=== PATIENT | female | born 1990 | race Caucasian/White ===

== ENCOUNTER 2024-11-01 00:31 | Observation (INO) | payer OTHER ==
[~2024-11-01] VITALS: Ht 157.5 cm; Wt 93.3 kg
[~2024-11-01 00:31] MED LIST: DITR5TAB PO; FLOM0.4C39 PO; KEFL500C17 PO; PERC5TAB12 PO; ZOFR4TAB14 PO; toradol PO
[2024-11-01 22:20] VITALS: BP 116/75; TEMP 98.9; O2SAT 100
[2024-11-01 23:29] LABS: KETONE, URINE AUTO RFX 1+ mg/dL (NEGATIVE); MUCUS, URINE RFX SMALL (NEGATIVE); NITRITE, URINE AUTO RFX NEGATIVE (NEGATIVE); RBC, URINE AUTO RFX TNTC /HPF (0-3); SQUAM EPITHELIAL CELL UR AURFX 1 /HPF (0-6); WBC, URINE AUTO RFX 10 /HPF (0-3)
[2024-11-02] VITALS (7 sets, daily range): BP systolic 113–138; BP diastolic 67–84; TEMP 97.2–99.6; O2SAT 95–100
[2024-11-02 00:02] LABS: LEUKOCYTE ESTERASE UR AUTO RFX TRACE (NEGATIVE)
[2024-11-02] MEDS ORDERED: PROMETHAZINE 25MG/ML 1ML VIAL IV PRN (00:10)
[2024-11-02 00:54] LABS: HEMATOCRIT 37.5 % (36.0-47.0); HEMOGLOBIN 12.7 g/dl (12.0-15.5); MEAN CORPUSCULAR HEMOGLOBIN 29.2 pg (27.0-33.0); MEAN CORPUSCULAR HGB CONC 33.9 g/dl (32.0-36.5); MEAN CORPUSCULAR VOLUME 86.2 fl (80.0-96.0); PLATELET COUNT, AUTOMATED 292 10^3/uL (150-450); RED BLOOD COUNT 4.35 10^6/uL (4.00-5.40); WHITE BLOOD COUNT 13.4 10^3/uL (4.0-10.0)
[2024-11-02 01:10] LABS: ALBUMIN 3.7 G/DL (3.2-5.2); ALKALINE PHOSPHATASE 64 U/L (35-104); ALT/SGPT 11 U/L (7.0-40); AST/SGOT 9 U/L (<34); BILIRUBIN,TOTAL 0.6 MG/DL (0.3-1.2); BLOOD UREA NITROGEN 9 MG/DL (9-23); CALCIUM LEVEL 8.5 MG/DL (8.5-10.1); CARBON DIOXIDE LEVEL 22 MMOL/L (20-31); CHLORIDE LEVEL 111 MMOL/L (98-107); CREATININE FOR GFR 0.76 MG/DL (0.55-1.30); GLOMERULAR FILTRATION RATE > 60.0 (>60); GLUCOSE, FASTING 93 MG/DL (60-100); SODIUM LEVEL 145 MMOL/L (136-145); TOTAL PROTEIN 6.6 G/DL (5.7-8.2)
[2024-11-02 01:17] LABS: PROCALCITONIN 0.04 ng/ml
[2024-11-02] MEDS: ACETAMINOPHEN 325 MG TAB PO PRN (02:11)
[2024-11-02] MEDS: PERCOCET 5MG/325MG TAB PO ONE (03:00)
[2024-11-02] MEDS: NS (Normal Saline) 0.9% 1,000 ML IV SCH (03:03)
[2024-11-02] MEDS: ONDANSETRON 4MG ORAL DISINTEGRATING TAB PO ONE (03:13)
[2024-11-02] MEDS: MORPHINE 2 MG/ML 1ML VIAL IV PRN (03:13)
[2024-11-02] MEDS ORDERED: oxyCODONE 5MG TAB PO PRN ×2 (07:40→16:45)
[2024-11-02] MEDS ORDERED: MORPHINE 2 MG/ML 1ML VIAL IV PRN (07:40)
[2024-11-02] MEDS ORDERED: fentaNYL 100 MCG/2 ML INJECTION IV PRN ×2 (07:40→16:45)
[2024-11-02] MEDS ORDERED: ONDANSETRON 4MG 2ML VIAL IV PRN ×2 (07:40→16:45)
[2024-11-02 08:12] LABS: HEMATOCRIT 36.8 % (36.0-47.0); HEMOGLOBIN 12.3 g/dl (12.0-15.5); MEAN CORPUSCULAR HGB CONC 33.4 g/dl (32.0-36.5); MEAN CORPUSCULAR VOLUME 86.8 fl (80.0-96.0); PLATELET COUNT, AUTOMATED 249 10^3/uL (150-450); RED BLOOD COUNT 4.24 10^6/uL (4.00-5.40)
[2024-11-02 08:38] LABS: BLOOD UREA NITROGEN 9 MG/DL (9-23); CALCIUM LEVEL 8.2 MG/DL (8.5-10.1); CARBON DIOXIDE LEVEL 23 MMOL/L (20-31); CHLORIDE LEVEL 112 MMOL/L (98-107); CREATININE FOR GFR 0.71 MG/DL (0.55-1.30); GLOMERULAR FILTRATION RATE > 60.0 (>60); GLUCOSE, FASTING 85 MG/DL (60-100); POTASSIUM SERUM 3.7 MMOL/L (3.5-5.1); SODIUM LEVEL 144 MMOL/L (136-145)
[2024-11-02] MEDS: PANTOPRAZOLE 20 MG TAB PO SCH (09:49)
[2024-11-02] MEDS ORDERED: PANT20TA6 PO (11:54)
[2024-11-02] MEDS ORDERED: ACET-897 PO (11:54)
[2024-11-02] MEDS ORDERED: HOME MED LIST COMPLETE! XX SCH (11:55)
[2024-11-02] MEDS ORDERED: MIDAZOLAM INJ 2MG/2ML VIAL As Ordered ONE (16:10)
[2024-11-02] MEDS ORDERED: fentaNYL 100 MCG/2 ML INJECTION As Ordered ONE (16:10)
[2024-11-02] MEDS ORDERED: LIDOCAINE 2% 100MG/5ML SDV (FOR ANES.) As Ordered ONE (16:10)
[2024-11-02] MEDS ORDERED: propofoL 200 MG/20 ML VIAL As Ordered ONE (16:10)
[2024-11-02] MEDS: ISOVUE-300 61% 100ML VIAL As Ordered ONE (16:36)
[2024-11-02] MEDS ORDERED: HYDROMORPHONE HCL 0.5 MG/ 0.5 ML SYRINGE IV PRN (16:45)
[2024-11-02] MEDS: cefTRIAXone SOD 1 GM in DEXTROSE 5% (D5W) ADV/MINI-BAG 50 ML IV SCH (18:24)
[2024-11-02] MEDS: LR 1,000 ML IV SCH (18:34)
[2024-11-02] MEDS: ACETAMINOPHEN 500 MG TAB PO SCH (21:38)
[2024-11-03] VITALS: BP 117/73; TEMP 98.5; O2SAT 97
[2024-11-03] MEDS: MORPHINE 2 MG/ML 1ML VIAL IV PRN (00:40)
[2024-11-03 06:00] VITALS: BP 127/69; TEMP 98.7; O2SAT 99
[2024-11-03 07:47] LABS: HEMATOCRIT 33.7 % (36.0-47.0); HEMOGLOBIN 11.5 g/dl (12.0-15.5); MEAN CORPUSCULAR HGB CONC 34.1 g/dl (32.0-36.5); PLATELET COUNT, AUTOMATED 222 10^3/uL (150-450); RED BLOOD COUNT 3.83 10^6/uL (4.00-5.40); WHITE BLOOD COUNT 6.9 10^3/uL (4.0-10.0)
[2024-11-03 08:13] LABS: BLOOD UREA NITROGEN 5 MG/DL (9-23); CALCIUM LEVEL 8.1 MG/DL (8.5-10.1); CARBON DIOXIDE LEVEL 23 MMOL/L (20-31); CHLORIDE LEVEL 109 MMOL/L (98-107); CREATININE FOR GFR 0.68 MG/DL (0.55-1.30); GLOMERULAR FILTRATION RATE > 60.0 (>60); GLUCOSE, FASTING 87 MG/DL (60-100); POTASSIUM SERUM 3.9 MMOL/L (3.5-5.1); SODIUM LEVEL 142 MMOL/L (136-145)
[2024-11-03] MEDS: ENOXAPARIN 40MG/0.4ML SYRINGE (J1650 PER 10MG) SC SCH (08:54)
[2024-11-03 10:00] VITALS: BP 120/61; TEMP 98.2; O2SAT 98
[2024-11-03 14:00] VITALS: BP 132/80; TEMP 98.3; O2SAT 99
[2024-11-03] MEDS: cefTRIAXone SOD 1 GM in DEXTROSE 5% (D5W) ADV/MINI-BAG 50 ML IV ONE (14:04)
== END 2024-11-03 15:47 | disposition home or self-care (01) ==
LOC: M PED 00:31
PROVIDERS: ADMIT Student in an Organized Health Care Education/Training Program; ATTEND Student in an Organized Health Care Education/Training Program
DX: N20.1 Calculus of ureter (principal); N10 Acute pyelonephritis; N17.9 Acute kidney failure, unspecified; D72.829 Elevated white blood cell count, unspecified; E27.8 Other specified disorders of adrenal gland; K21.9 Gastro-esophageal reflux disease without esophagitis; K76.0 Fatty (change of) liver, not elsewhere classified; M51.379 Other intervertebral disc degeneration, lumbosacral region without mention of lumbar back pain or lower extremity pain; Z79.899 Other long term (current) drug therapy
CPT/HCPCS: 36415; 52332; 76000; 80048; 80053; 81001; 83605; 83735; 84145; 85027; 87040; 87086; 93005; 96361; 96365; 96366; 96372; 96375; 96376; C2617; J0696; J1650; J2250; J3010; Q9967

== ENCOUNTER 2024-11-17 07:25 | Day surgery (SDC) | payer OTHER ==
[~2024-11-17] VITALS: Ht 157.5 cm; Wt 93.3 kg
[~2024-11-17 07:25] MED LIST changes: +ACET-897 PO; +LIDOCAINE 2% 100MG/5ML SDV (FOR ANES.) As Ordered ONE; +MIDAZOLAM INJ 2MG/2ML VIAL As Ordered ONE; +OXYB5TAB14 PO; +PANT20TA6 PO; +PHEN1TAB73 PO; +propofoL 200 MG/20 ML VIAL As Ordered ONE
[2024-11-17] MEDS ORDERED: LR 1,000 ML IV SCH ×2 (08:15→09:35)
[2024-11-17] MEDS ORDERED: SCOPOLAMINE 1MG TRANSDERMAL PATCH TOP ONE (08:20)
[2024-11-17] MEDS: ceFAZolin SOD 2 GM IV ONCE IV ONE (08:27)
[2024-11-17] MEDS ORDERED: ACETAMINOPHEN 1000MG/100ML IV BAG As Ordered ONE (08:33)
[2024-11-17] MEDS ORDERED: KETOROLAC 30 MG/ML 1ML VIAL As Ordered ONE (08:34)
[2024-11-17] MEDS: SCOPOLAMINE 1MG TRANSDERMAL PATCH As Ordered ONE (08:37)
[2024-11-17] MEDS ORDERED: ePHEDrine SULFATE 25 MG/5 ML(5MG/ML) SYRINGE As Ordered ONE (08:38)
[2024-11-17] MEDS ORDERED: PHENYLephrine 500MCG 5ML (100MCG/ML) SYRINGE As Ordered ONE (09:01)
[2024-11-17] MEDS ORDERED: PYRI1TAB5 PO (09:14)
[2024-11-17] MEDS ORDERED: MACR100C43 PO (09:14)
[2024-11-17] MEDS ORDERED: HYDROMORPHONE HCL 0.5 MG/ 0.5 ML SYRINGE IV PRN (09:35)
[2024-11-17] MEDS ORDERED: ONDANSETRON 4MG 2ML VIAL IV PRN (09:35)
[2024-11-17] MEDS ORDERED: oxyCODONE 5MG TAB PO PRN (09:35)
[2024-11-17] MEDS ORDERED: fentaNYL 100 MCG/2 ML INJECTION IV PRN (09:35)
[2024-11-17] MEDS: PROMETHAZINE 25MG/ML 1ML VIAL IV PRN (10:06)
[2024-11-17 12:50] VITALS: BP 132/82; TEMP 97.3; O2SAT 99
== END 2024-11-17 13:00 | disposition home or self-care (01) ==
LOC: M SDC 07:25
PROVIDERS: ATTEND Urology
DX: N20.0 Calculus of kidney (principal); K21.9 Gastro-esophageal reflux disease without esophagitis; Z79.899 Other long term (current) drug therapy
CPT/HCPCS: 50590; 74018; J0131; J0690; J1885; J2250; J2371; J2550

== ENCOUNTER 2024-11-22 21:10 | Emergency (ER) | payer OTHER ==
[~2024-11-22] VITALS: Ht 157.5 cm; Wt 94.3 kg
[~2024-11-22 21:10] MED LIST changes: -LIDOCAINE 2% 100MG/5ML SDV (FOR ANES.) As Ordered ONE; +MACR100C43 PO; -MIDAZOLAM INJ 2MG/2ML VIAL As Ordered ONE; +PYRI1TAB5 PO; -propofoL 200 MG/20 ML VIAL As Ordered ONE
[2024-11-22 22:06] LABS: KETONE, URINE AUTO RFX NEGATIVE (NEGATIVE); MUCUS, URINE RFX SMALL (NEGATIVE); RBC, URINE AUTO RFX TNTC /HPF (0-3); SQUAM EPITHELIAL CELL UR AURFX 1 /HPF (0-6)
[2024-11-22 22:12] LABS: LEUKOCYTE ESTERASE UR AUTO RFX TRACE (NEGATIVE); NITRITE, URINE AUTO RFX POSITIVE (NEGATIVE)
[2024-11-22 22:13] LABS: WBC, URINE AUTO RFX 72 /HPF (0-3)
[2024-11-22 22:32] LABS: BASO # 0.1 10^3/uL (0.0-0.2); BASO % 0.4 % (0.0-1.0); EOS # 0.2 10^3/uL (0.0-0.5); EOS % 1.6 % (0.0-3.0); HEMATOCRIT 39.7 % (36.0-47.0); HEMOGLOBIN 13.7 g/dl (12.0-15.5); LYMPH # 1.9 10^3/uL (1.5-5.0); LYMPH % 13.3 % (24.0-44.0); MEAN CORPUSCULAR HEMOGLOBIN 29.8 pg (27.0-33.0); MEAN CORPUSCULAR HGB CONC 34.5 g/dl (32.0-36.5); MEAN CORPUSCULAR VOLUME 86.5 fl (80.0-96.0); MONO # 0.7 10^3/uL (0.0-0.8); MONO % 4.6 % (2.0-8.0); NEUTROPHILS # 11.7 10^3/uL (1.5-8.5); NEUTROPHILS % 79.7 % (36.0-66.0); PLATELET COUNT, AUTOMATED 330 10^3/uL (150-450); RED BLOOD COUNT 4.59 10^6/uL (4.00-5.40); WHITE BLOOD COUNT 14.6 10^3/uL (4.0-10.0)
[2024-11-22 22:59] LABS: LIPASE 33 U/L (12-53)
[2024-11-22 23:52] LABS: ALBUMIN 4.1 G/DL (3.2-5.2); ALKALINE PHOSPHATASE 64 U/L (35-104); ALT/SGPT 16 U/L (7.0-40); AST/SGOT 13 U/L (<34); BILIRUBIN,DIRECT 0.2 MG/DL (<0.4); BILIRUBIN,TOTAL 0.4 MG/DL (0.3-1.2); BLOOD UREA NITROGEN 11 MG/DL (9-23); CALCIUM LEVEL 9.9 MG/DL (8.5-10.1); CARBON DIOXIDE LEVEL 25 MMOL/L (20-31); CHLORIDE LEVEL 107 MMOL/L (98-107); CREATININE FOR GFR 0.81 MG/DL (0.55-1.30); GLOMERULAR FILTRATION RATE > 60.0 (>60); GLUCOSE, FASTING 150 MG/DL (60-100); POTASSIUM SERUM 3.8 MMOL/L (3.5-5.1); SODIUM LEVEL 141 MMOL/L (136-145); TOTAL PROTEIN 7.1 G/DL (5.7-8.2)
[2024-11-23] MEDS: KETOROLAC TROMETHAMINE 10 MG TAB PO ONE (02:17)
[2024-11-23] MEDS: TAMSULOSIN 0.4 MG CAP PO ONE (02:17)
[2024-11-23] MEDS ORDERED: FLOM0.4C39 PO (02:19)
[2024-11-23] MEDS ORDERED: KETO10TAB PO (02:19)
[2024-11-23 02:31] VITALS: BP 148/100; TEMP 97.6; O2SAT 100
== END 2024-11-23 02:35 | disposition home or self-care (01) ==
LOC: M ED 21:10
DX: N20.1 Calculus of ureter (principal); K44.9 Diaphragmatic hernia without obstruction or gangrene; Z87.442 Personal history of urinary calculi; Z91.048 Other nonmedicinal substance allergy status; Z79.899 Other long term (current) drug therapy; Z79.1 Long term (current) use of non-steroidal anti-inflammatories (NSAID)

== ENCOUNTER → 2024-11-29 | Outpatient (REF) | payer OTHER ==
[~2024-11-29] MED LIST changes: +KETO10TAB PO
== END ==
LOC: M SMT 17:01
PROVIDERS: ATTEND Specialist
DX: N20.0 Calculus of kidney (principal)

== ENCOUNTER → 2024-12-08 | Outpatient (CLI) | payer OTHER ==
[~2024-12-08] MED LIST changes: -FLOM0.4C39 PO; +TAMS-18 PO
[2024-12-08 13:11] LABS: HEMATOCRIT 40.7 % (36.0-47.0); HEMOGLOBIN 13.9 g/dl (12.0-15.5); MEAN CORPUSCULAR HEMOGLOBIN 29.8 pg (27.0-33.0); MEAN CORPUSCULAR HGB CONC 34.2 g/dl (32.0-36.5); MEAN CORPUSCULAR VOLUME 87.3 fl (80.0-96.0); PLATELET COUNT, AUTOMATED 284 10^3/uL (150-450); RED BLOOD COUNT 4.66 10^6/uL (4.00-5.40); WHITE BLOOD COUNT 6.7 10^3/uL (4.0-10.0)
[2024-12-08 13:17] LABS: APPEARANCE, URINE HAZY (CLEAR); BACTERIA, URINE AUTO NEGATIVE (NEGATIVE); BILIRUBIN, URINE AUTO NEGATIVE (NEGATIVE); BLOOD, URINE BLOOD NEGATIVE (NEGATIVE); COLOR, URINE YELLOW (YELLOW); GLUCOSE, URINE (UA) AUTO NEGATIVE (NEGATIVE); KETONE, URINE AUTO NEGATIVE (NEGATIVE); LEUKOCYTE ESTERASE, URINE AUTO 1+ (NEGATIVE); MUCUS, URINE SMALL (NEGATIVE); NITRITE, URINE AUTO NEGATIVE (NEGATIVE); PROTEIN, URINE AUTO NEGATIVE (NEGATIVE); RBC, URINE AUTO 2 /HPF (0-3); SPECIFIC GRAVITY URINE AUTO 1.016 (1.002-1.035); SQUAMOUS EPITHELIAL CELL UR AU 4 /HPF (0-6); WBC, URINE AUTO 10 /HPF (0-3)
[2024-12-08 13:35] LABS: BLOOD UREA NITROGEN 10 MG/DL (9-23); CALCIUM LEVEL 8.9 MG/DL (8.5-10.1); CARBON DIOXIDE LEVEL 27 MMOL/L (20-31); CHLORIDE LEVEL 108 MMOL/L (98-107); CREATININE FOR GFR 0.85 MG/DL (0.55-1.30); GLOMERULAR FILTRATION RATE > 90.0 (>60); GLUCOSE, FASTING 74 MG/DL (60-100); POTASSIUM SERUM 4.1 MMOL/L (3.5-5.1); SODIUM LEVEL 143 MMOL/L (136-145)
== END ==
LOC: M RAD 12:22
PROVIDERS: ATTEND Specialist
DX: Z01.818 Encounter for other preprocedural examination (principal)

== ENCOUNTER 2024-12-15 08:54 | Day surgery (SDC) | payer OTHER ==
[~2024-12-15] VITALS: Ht 157.5 cm; Wt 92.1 kg
[~2024-12-15 08:54] MED LIST changes: +DEPO104I; +FERR325T19 PO; +KETO-204 PO; +PANT40TA29 PO; +PHEN-501 PO; +TAMS1CAP17 PO
[2024-12-15] MEDS ORDERED: LR 1,000 ML IV SCH (09:10)
[2024-12-15] MEDS ORDERED: ONDANSETRON 4MG 2ML VIAL As Ordered ONE (10:34)
[2024-12-15] MEDS ORDERED: propofoL 200 MG/20 ML VIAL As Ordered ONE (10:34)
[2024-12-15] MEDS ORDERED: LIDOCAINE 2% INJ 100 MG/5 ML SYRINGE As Ordered ONE (10:34)
[2024-12-15] MEDS ORDERED: ACETAMINOPHEN 1000MG/100ML IV BAG As Ordered ONE (10:34)
[2024-12-15] MEDS ORDERED: fentaNYL 100 MCG/2 ML INJECTION As Ordered ONE (10:35)
[2024-12-15] MEDS: SCOPOLAMINE 1MG TRANSDERMAL PATCH TOP ONE (10:45)
[2024-12-15] MEDS ORDERED: ROCURONIUM BROMIDE 50MG/5ML VIAL As Ordered ONE (10:57)
[2024-12-15] MEDS: ceFAZolin SOD 2 GM IV ONCE IV ONE (11:23)
[2024-12-15] MEDS ORDERED: SUGAMMADEX SODIUM 500 MG/5 ML VIAL (BRIDION) As Ordered ONE (11:34)
[2024-12-15] MEDS ORDERED: fentaNYL 100 MCG/2 ML INJECTION IV PRN (11:50)
[2024-12-15] MEDS ORDERED: ONDANSETRON 4MG 2ML VIAL IV PRN (11:50)
[2024-12-15] MEDS ORDERED: oxyCODONE 5MG TAB PO PRN (11:50)
[2024-12-15] MEDS ORDERED: MORPHINE 2 MG/ML 1ML VIAL IV PRN (11:50)
[2024-12-15 13:05] VITALS: BP 135/72; TEMP 97.9; O2SAT 98
== END 2024-12-15 13:16 | disposition home or self-care (01) ==
LOC: M SDC 08:54
PROVIDERS: ATTEND Urology
DX: N20.0 Calculus of kidney (principal); K21.9 Gastro-esophageal reflux disease without esophagitis; Z87.442 Personal history of urinary calculi; Z90.710 Acquired absence of both cervix and uterus; Z79.899 Other long term (current) drug therapy; Z91.048 Other nonmedicinal substance allergy status
CPT/HCPCS: 50590; 74018; J0131; J0690; J1100; J2405; J3010

== ENCOUNTER → 2025-01-03 | Outpatient (CLI) | payer OTHER | LOC: M PLAIMG 11:07 | PROVIDERS: ATTEND Urology | DX: N20.0 Calculus of kidney (principal) ==

== ENCOUNTER → 2025-01-04 | Outpatient (REF) | payer OTHER | LOC: M SMT 15:21 | PROVIDERS: ATTEND Nurse Practitioner Family | DX: N20.0 Calculus of kidney (principal) ==